=== PATIENT | female | born 1950 | race Caucasian/White ===

== ENCOUNTER → 2024-02-15 09:03 | Outpatient (REF) | payer MEDICARE, OTHER, SELFPAY | LOC: RAD 09:03 | PROVIDERS: ATTENDING PHYSICIAN Internal Medicine Cardiovascular Disease; FAMILY PHYSICIAN Family Medicine | DX: R94.31 Abnormal electrocardiogram [ECG] [EKG] (principal); Z68.39 Body mass index [BMI] 39.0-39.9, adult; E66.01 Morbid (severe) obesity due to excess calories; R00.2 Palpitations; R06.02 Shortness of breath; E78.5 Hyperlipidemia, unspecified | CPT/HCPCS: 75574; Q9967 ==

== ENCOUNTER → 2024-02-22 06:26 | Outpatient (REF) | payer MEDICARE, OTHER, SELFPAY ==
[2024-02-22 07:14] LABS: % Basophils 0.4 % (0-2); % Lymphocytes 35.1 % (20.5-51.1); % Monocytes 7.2 % (1.7-9.3); % Neutrophils 54.3 % (42.2-75.2); Absolute Eosinophils 0.1 10^3/uL (0-0.7); Absolute Lymphocytes 1.7 10^3/uL (1.2-3.4); Absolute Monocytes 0.3 10^3/uL (0.1-0.6); Absolute Neutrophils 2.6 10^3/uL (1.4-6.5); Hemoglobin 12.6 g/dL (12.0-16.0); Mean Corp Hgb Conc. 33.2 g/dL (33.0-37.0); Mean Corpuscular Hgb 29.9 pg (27.0-31.0); Mean Corpuscular Volume 90.3 fL (81.0-99.0); Mean Platelet Volume 9.1 fL (7.4-10.4); Nucleated Red Blood Cells % 0 %; Platelet Count 211 10^3/uL (130-400); Red Blood Cell Count 4.21 10^6/uL (4.20-5.40); Red Cell Dist. Width 13.3 % (11.5-14.5); White Blood Cell Count 4.7 10^3/uL (4.8-10.8)
[2024-02-22 07:33] LABS: ALT (SGPT) 22 U/L (0-35); AST (SGOT) 31 U/L (14-36); Alkaline Phosphatase 75 U/L (38-126); Blood Urea Nitrogen 28 mg/dl (7-17); Calcium 9.4 mg/dl (8.4-10.2); Carbon Dioxide 27 mmol/L (22-30); Chloride 101 mmol/L (98-107); Glucose 97 mg/dl (70-99); Potassium 4.1 mmol/L (3.5-5.1); Sodium 136 mmol/L (135-145); Total Bilirubin 0.7 mg/dl (0.2-1.3); Total Protein 6.7 g/dl (6.3-8.2); eGFR > 60.00
== END ==
LOC: SDSPAT 06:26
PROVIDERS: ATTENDING PHYSICIAN Internal Medicine Cardiovascular Disease; FAMILY PHYSICIAN Family Medicine; OTHER PHYSICIAN Internal Medicine Cardiovascular Disease
DX: Z01.818 Encounter for other preprocedural examination (principal); R94.30 Abnormal result of cardiovascular function study, unspecified; R07.89 Other chest pain
CPT/HCPCS: 36415; 80053; 85025; 93005

== ENCOUNTER 2024-02-23 05:54 | Day surgery (SDC) | payer MEDICARE, OTHER, SELFPAY ==
[2024-02-22 06:32] VITALS: BMI 42.2
--- NOTE | 2024-02-22 09:18 | HPS.HSE ---
Family Physician
-
Family Physician: Gwen Wade
Chief Complaint
-
Abnormal coronary angiography CT.
History of Present Illness
The patient is a 73 year old morbidly obese, female presenting today after a recent abnormal coronary angiography CT. Back in December 2023, the patient reported intermittent episodes of shortness of breath, fatigue, dizziness, and
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 She explained that even low levels of exertion would bring about these symptoms. Her EKG in office was noted to be normal. Given her symptoms, an echocardiogram and coronary
angiography CT were ordered for further assessment. Her echocardiogram on 01/09/2024 revealed a preserved ejection fraction of 70%, grade 1 diastolic dysfunction, and borderline mild mitral stenosis. Her coronary angiography CT, however,
demonstrated a severe calcific atherosclerotic plaque in the mid segment of the LAD, causing 2 severe stenoses. Her coronary artery calcium score was 356.94. She will now undergo a left cardiac catheterization for further assessment. She denies any
new complaints today such as chest pain or shortness of breath at rest, nausea, vomiting, diarrhea, lightheadedness, cough, sore throat, or fever.
Medical History
Past Medical History
Past Medical History: Reports Other
Additional Past Medical History:
1. Abnormal coronary angiography CT.
2. Hypertension.
3. Hyperlipidemia.
4. Questionable atrial fibrillation.
5. Borderline mild mitral stenosis.
6. Borderline obstructive sleep apnea, no current device.
7. GERD.
8. History of tubular adenoma.
9. Hemorrhoids.
10. Chronic constipation.
11. Migraines.
12. Osteoarthritis.
13. Osteopenia.
14. Morbid obesity, BMI 42.2; status post gastric bypass 2001.
Past Surgical History: Reports Other
Additional Past Surgical History:
1. Gastric bypass.
2. Septoplasty and uvulopalatoplasty.
3. Bilateral tubal ligation.
4. Hemorrhoidectomy.
5. Excision of left PIP mass.
6. Excision of facial cyst.
7. Bilateral cataract extraction.
8. Colonoscopy x3.
Social History
Tobacco: Non-smoker
Alcohol: Other (She, on average, drinks 4-5 alcoholic beverages weekly. )
Personal:
Living: Other (She lives with her in a 2 story home. )
Family History
Family History: Not pertinent
Allergies / Home Medications
Allergy/Medication List:
Home medications:
1. Amlodipine 10 mg p.o. daily.
2. Aspirin 81 mg p.o. daily.
3. Calcium citrate 1 tablet p.o. daily.
4. Zyrtec 10 mg p.o. daily.
5. Cyanocobalamin 500 mcg p.o. four times a week.
6. Colace 250 mg p.o. daily.
7. Hydrochlorothiazide 25 mg p.o. daily.
8. Multivitamin 1 tablet p.o. daily.
9. Olmesartan 40 mg p.o. daily.
10. Fish oil 1000 mg p.o. daily.
11. Simvastatin 20 mg p.o. daily.
Allergies: Captopril. Vasotec. Penicillin. Sulfa and Bactrim. Seasonal.
Review of Systems
-
A 12 point ROS was completed and negative except as noted: Yes
Physical Exam
Vital Signs
Blood pressure 178/78, likely elevated secondary to anxiety over catheterization. Heart rate 67. Respirations 18. Pulse ox 100% on room air.
Height 5 feet, 3 inches. Weight 108 kg. BMI 42.2.
Physical Exam
General: Well Developed, Well Nourished and No Apparent Distress
HEENT: NormoCephalic, Moist mucous membranes, Atraumatic and PERRLA
Respiratory: Clear
Cardiac: Regular Rhythm and Murmur (II/)
GI: Soft, Non Tender, Non Distended and Other (Morbidly obese. )
Musculoskeletal: Normal Gait & Station
Skin: Warm and Dry
Neuro: AO x 3 and Nonfocal/grossly intact
Laboratory Results
-
DIAGNOSTIC STUDIES as of 02/22/2024: White blood cell count 4.7. Hemoglobin 12.6. Platelet count 211,000. Sodium 136.Potassium 4.1. BUN 28. Creatinine 0.7. Glucose 97. Calcium 9.4. AST 31. ALT 22. Albumin 4.0.
EKG 02/22/2024: Normal sinus rhythm. Poor R wave progression.
Coronary angiography CT 02/15/2024: SEVERE CALCIFIC ATHEROSCLEROTIC PLAQUE in the MID SEGMENT of the LAD causing two SEVERE STENOSES (greater than 70% diameter). Severe calcific plaque in the proximal 1st and 2nd diagonal branches of the LAD. 50%
diameter stenosis in the mid segment of the left circumflex coronary artery. Coronary Artery Calcium Score: 356.94.
Impression/Plan
-
IMPRESSION/PLAN:
1. Abnormal coronary angiography CT: The patient is in need of a left cardiac catheterization with Dr. Chivo Dunbar on 02/23/2024. The benefits and risks of the procedure have been explained to the patient. The patient understands these risks and
wishes to proceed. She is aware to continue her baby Aspirin daily up to and including the morning of her procedure.
[2024-02-23 06:33] VITALS: BP 158/73
[2024-02-23] MEDS: NSS 324 ML IV (06:45)
[2024-02-23 07:57] VITALS: BP 132/63
--- NOTE | 2024-02-23 08:05 | ITS.CL.CATH ---
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
Cardiac Catheterization
Procedure Report:
CARDIAC CATHETERIZATION REPORT
Date of Procedure: 02-23-2024
Referring: Georgi Correa DO
Indication: Episodic shortness of breath and elevated coronary calcium score
HEMODYNAMIC DATA
AO: 124/78
LV: 124/18
LEFT VENTRICULOGRAPHY: Normal left ventricular wall motion with EF 67%
CORONARY ANGIOGRAPHY
Dominance: Right
Left Main: Normal
LAD: Moderate proximal and mid LAD calcification. There is a focal 20-30% mid LAD stenosis and 20% distal LAD stenosis at the site of an endomyocardial bridge segment which has 40% systolic compression
Circumflex: Trivial luminal irregularities
RCA: Large dominant vessel with trivial luminal irregularities
Closure Device: None-the procedure was performed via the right radial artery. The Arpan's test was normal prior to the procedure.
Radiation (mGy):344
DAP (cm2.Gy): 32.9
Fluoroscopy time: 3.5 minutes
CONCLUSIONS
1: Normal left ventricular function with EF 67%
2: Coronary calcium with very mild CAD
3. Recommend statin to achieve LDL less than 70 and long-term low-dose aspirin therapy. Patient has been advised to begin a walking program and to measure home blood pressures regularly and bring these readings to all physician visits
Copy to: Georgi Correa DO, Gwen Wade MD
Chivo Dunbar MD, [facility], [facility]
[2024-02-23 08:12] VITALS: BP 118/69
[2024-02-23 08:27] VITALS: BP 138/67
[2024-02-23 08:42] VITALS: BP 124/59
[2024-02-23 08:57] VITALS: BP 135/66
== END 2024-02-23 10:42 | disposition home or self-care (01) ==
LOC: CATH 05:54
PROVIDERS: ATTENDING PHYSICIAN Internal Medicine Cardiovascular Disease; FAMILY PHYSICIAN Family Medicine; OTHER PHYSICIAN Internal Medicine Cardiovascular Disease
DX: I25.10 Atherosclerotic heart disease of native coronary artery without angina pectoris (principal); I25.84 Coronary atherosclerosis due to calcified coronary lesion; R42 Dizziness and giddiness; R00.2 Palpitations; I10 Essential (primary) hypertension; R93.1 Abnormal findings on diagnostic imaging of heart and coronary circulation; E78.5 Hyperlipidemia, unspecified; R06.02 Shortness of breath; G47.33 Obstructive sleep apnea (adult) (pediatric); I05.0 Rheumatic mitral stenosis; K21.9 Gastro-esophageal reflux disease without esophagitis; Z86.010 Personal history of colon polyps; Z87.19 Personal history of other diseases of the digestive system; K59.09 Other constipation; G43.909 Migraine, unspecified, not intractable, without status migrainosus; M19.90 Unspecified osteoarthritis, unspecified site; M85.80 Other specified disorders of bone density and structure, unspecified site; Z98.84 Bariatric surgery status; Z79.82 Long term (current) use of aspirin; Z68.41 Body mass index [BMI] 40.0-44.9, adult; E66.01 Morbid (severe) obesity due to excess calories; Z88.0 Allergy status to penicillin; Z88.1 Allergy status to other antibiotic agents; Z88.2 Allergy status to sulfonamides
CPT/HCPCS: 93458; C1894; Q9967